=== PATIENT | female | born 1980 | race African-American/Black ===

== ENCOUNTER 2022-07-15 11:58 | Emergency (ER) | payer SELFPAY ==
[2022-07-15] MEDS ORDERED: Ketorolac Tromethamine 30 MG/ML VIAL ONE (15:38)
== END 2022-07-15 17:00 | disposition home or self-care (01) ==
LOC: CSHERS 11:58
DX: S93.401A Sprain of unspecified ligament of right ankle, initial encounter (principal); F17.210 Nicotine dependence, cigarettes, uncomplicated; X50.0XXA Overexertion from strenuous movement or load, initial encounter
CPT/HCPCS: 96374; J1885